=== PATIENT | female | born 1965 | race African-American/Black ===

== ENCOUNTER → 2016-11-18 | Outpatient (CLI) | payer OTHER ==
[2015-08-10 11:00] VITALS: BP 133/96
[~2016-11-18] MED LIST: AMLO5TAB2 PO; ASPI-482 PO; ERYT250C8 PO; Hydrocodone/Acetaminophen PO; LISI-334 PO; LISI1TAB7 PO; PRED2.5T PO; PRED20TA PO; RANI150C PO
--- NOTE | 2016-11-18 16:39 | RAD ---
DATE: 11/18/2016 EXAM: DIGITAL SCREEN BILAT W/CAD HISTORY: Routine screening COMPARISON: None available. This is dictated as a baseline exam This study was interpreted with the benefit of Computerized Aided Detection (CAD). FINDINGS: The breast parenchyma demonstrates predominantly fatty dense breast tissue, category A. There are no dominant suspicious masses, suspicious microcalcifications or evidence of architectural distortion. Benign-appearing calcified nodule identified in the right breast. Intramammary lymph nodes identified in the bilateral breasts IMPRESSION: Benign findings BI-RADS CATEGORY: 2 BENIGN FINDING RECOMMENDED FOLLOW-UP: 12M 12 MONTH FOLLOW-UP PQRS compliance statement: Patient information was entered into a reminder system with a target due date 11/18/2017 for the next mammogram. Mammography is a sensitive method for finding small breast cancers, but it does not detect them all and is not a substitute for careful clinical examination. A negative mammogram does not negate a clinically suspicious finding and should not result in delay in biopsying a clinically suspicious abnormality. "Our facility is accredited by the [employer] Mammography Program."
== END | disposition home or self-care (01) ==
LOC: MAMMO 14:21
PROVIDERS: ATTEND Family Medicine
DX: Z12.31 Encounter for screening mammogram for malignant neoplasm of breast (principal)
CPT/HCPCS: G0202; 77067

== ENCOUNTER → 2017-04-03 | Outpatient (CLI) | payer OTHER ==
[2015-08-10 11:00] VITALS: BP 133/96
[~2017-04-03] MED LIST changes: +IOHEXOL 300 MG/ML 75 ML VIAL IV ONE
--- NOTE | 2017-04-03 11:36 | RAD ---
EXAM: CT abdomen/pelvis with contrast. HISTORY: Crohn disease. TECHNIQUE: Computed tomography of the abdomen and pelvis was performed after the intravenous administration of 75 mL Omnipaque 300. COMPARISON: 08/07/2015. FINDINGS: Lung windows through the visualized portions of the bases reveal mild atelectasis. Bone windows reveal no suspicious lesions. There is moderate to severe diffuse hepatic steatosis. Cholecystectomy clips are noted. The kidneys, adrenal glands, pancreas and spleen are unremarkable. There are no pathologically enlarged lymph nodes. There is mild wall thickening throughout the colon with loss of haustration. There is no clear small bowel wall thickening. There is no drainable collection. There is no stricture or dilatation. The appendix is not inflamed. The uterus is surgically absent. IMPRESSION: 1. Loss of haustration and mild wall thickening of the colon. Correlate for chronic inflammation with mild superimposed colitis. 2. Moderate to severe diffuse hepatic steatosis. *One or more of the following individualized dose reduction techniques were utilized for this examination: 1. Automated exposure control. 2. Adjustment of the mA and/or kV according to patient size. 3. Use of iterative reconstruction technique.
== END | disposition home or self-care (01) ==
LOC: CT 08:55
PROVIDERS: ATTEND Physician Assistant
DX: K50.90 Crohn's disease, unspecified, without complications (principal); K76.0 Fatty (change of) liver, not elsewhere classified; I10 Essential (primary) hypertension
CPT/HCPCS: 74170; Q9967

== ENCOUNTER 2017-07-28 14:40 | Inpatient (IN) | payer OTHER ==
[2017-07-28 15:30] LABS: ADD MAN DIFF? NO
[2017-07-28 15:36] LABS: BASO % 1 % (0-3); EOS # 0.1 x10^3/uL (0.0-0.7); EOS % 1 % (0-3); HEMATOCRIT 45.3 % (36.0-47.0); HEMOGLOBIN 14.9 g/dL (12.0-15.5); LYMPH # 3.8 x10^3/uL (1.0-4.8); LYMPH % 43 % (24-48); MEAN CORPUSCULAR HEMOGLOBIN 30 pg (25-35); MEAN CORPUSCULAR HGB CONC 33 g/dL (31-37); MEAN CORPUSCULAR VOLUME 91 fL (79-100); MONO # 0.8 x10^3/uL (0.0-1.1); MONO % 9 % (0-9); NEUT # 4.1 x10^3uL (1.8-7.7); NEUT % 47 % (31-73); PLATELET COUNT 362 x10^3/uL (140-400); RED BLOOD COUNT 4.99 x10^6/uL (3.50-5.40); WHITE BLOOD COUNT 8.8 x10^3/uL (4.0-11.0)
[2017-07-28 15:43] LABS: PARTIAL THROMBOPLASTIN TIME 32 SEC (24-38); PROTHROMBIN TIME PATIENT 12.9 SEC (11.7-14.0)
[2017-07-28 15:51] LABS: D-DIMER < 0.27 ug/mlFEU (0.00-0.50)
[2017-07-28] MEDS: ASPIRIN ENTERIC COATED 325 MG TABLET.DR. PO (16:00)
[2017-07-28] MEDS: KETOROLAC 30 MG/ML INJ. IV (16:00)
[2017-07-28 16:43] LABS: ANION GAP 16 (6-14); BLOOD UREA NITROGEN 12 mg/dL (7-20); BUN/CREATININE RATIO 13 (6-20); CALCIUM 9.4 mg/dL (8.5-10.1); CARBON DIOXIDE 22 mmol/L (21-32); CHLORIDE 101 mmol/L (98-107); CREATININE 0.9 mg/dL (0.6-1.0); GFR 79.9; GLUCOSE 90 mg/dL (70-99); POTASSIUM 3.9 mmol/L (3.5-5.1); SODIUM 139 mmol/L (136-145)
[2017-07-28 16:49] LABS: ALBUMIN 4.1 g/dL (3.4-5.0); ALK PHOS 106 U/L (46-116); ALT (SGPT) 68 U/L (14-59); AST (SGOT) 89 U/L (15-37); CREATINE KINASE 328 U/L (26-192); LIPASE 98 U/L (73-393); MAGNESIUM 1.7 mg/dL (1.8-2.4); TOTAL BILIRUBIN 0.3 mg/dL (0.2-1.0); TOTAL PROTEIN 8.4 g/dL (6.4-8.2)
[2017-07-28 16:55] LABS: NT-PRO BNP 12 pg/mL (0-124)
[2017-07-28 16:57] LABS: TROPONINI < 0.017 ng/mL (0.000-0.055)
[2017-07-28 17:18] LABS: ETHANOL 105 mg/dL (0-10)
[2017-07-28 17:22] LABS: THYROID STIM HORMONE (TSH) 3.263 uIU/mL (0.358-3.74)
[2017-07-28] MEDS ORDERED: fentaNYL PF VIAL 100 MCG/2 ML VIAL IV (17:45)
[2017-07-28] MEDS ORDERED: ONDANSETRON PF 4 MG/2 ML VIAL. IV ×2 (17:45→19:30)
[2017-07-28] MEDS ORDERED: ALPRAZolam 0.25 MG TABLET PO (19:30)
[2017-07-28] MEDS ORDERED: chlordiazePOXIDE HCL 25 MG CAPSULE PO (19:30)
[2017-07-28] MEDS ORDERED: HYDROCODONE PO (19:30)
[2017-07-28] MEDS ORDERED: ACETAMINOPHEN PO (19:30)
[2017-07-28] MEDS ORDERED: IBUPROFEN 600 MG TABLET. PO (19:30)
[2017-07-28] MEDS: CYCLOBENZAPRINE 10 MG TABLET. PO ×2 (21:00→21:54)
[2017-07-28] MEDS: MULTIVIT INFUSN,ADULT 4,VIT K 10 ML, THIAMINE 100 MG, FOLIC ACID 1 MG in IV DEXTROSE 5 ... IV (21:54)
[2017-07-28] MEDS: IBUPROFEN 600 MG TABLET. PO (21:55)
[2017-07-28] MEDS: LORazepam 1 MG TABLET PO ×2 (21:56→23:45)
[2017-07-28] MEDS: FAMOTIDINE 20 MG TABLET. PO (21:56)
[2017-07-28 23:58] LABS: TROPONINI < 0.017 ng/mL (0.000-0.055)
[2017-07-29] MEDS: LORazepam 1 MG TABLET PO ×4 (05:45→23:23)
[2017-07-29 07:39] LABS: ANION GAP 11 (6-14); BLOOD UREA NITROGEN 14 mg/dL (7-20); CALCIUM 9.2 mg/dL (8.5-10.1); CARBON DIOXIDE 22 mmol/L (21-32); CHLORIDE 100 mmol/L (98-107); CREATININE 0.9 mg/dL (0.6-1.0); GFR 79.9; GLUCOSE 101 mg/dL (70-99); POTASSIUM 4.2 mmol/L (3.5-5.1); SODIUM 133 mmol/L (136-145)
[2017-07-29 07:48] LABS: TROPONINI < 0.017 ng/mL (0.000-0.055)
[2017-07-29] MEDS: MULTIVIT INFUSN,ADULT 4,VIT K 10 ML, THIAMINE 100 MG, FOLIC ACID 1 MG in IV DEXTROSE 5 ... IV (09:00)
[2017-07-29] MEDS: predniSONE 20 MG TABLET PO ×3 (09:00→09:29)
[2017-07-29] MEDS: ACETAMINOPHEN 500 MG TABLET PO (09:26)
[2017-07-29] MEDS: LISINOPRIL 20 MG TABLET PO (09:27)
[2017-07-29] MEDS: amLODIPine BESYLATE 5 MG TABLET PO (09:28)
[2017-07-29] MEDS: FAMOTIDINE 20 MG TABLET. PO ×2 (09:28→23:22)
[2017-07-29 10:15] LABS: ADD MAN DIFF? NO
[2017-07-29 10:45] LABS: BASO % 0 % (0-3); EOS # 0.1 x10^3/uL (0.0-0.7); EOS % 1 % (0-3); HEMOGLOBIN 13.9 g/dL (12.0-15.5); LYMPH # 2.1 x10^3/uL (1.0-4.8); LYMPH % 43 % (24-48); MEAN CORPUSCULAR HEMOGLOBIN 30 pg (25-35); MEAN CORPUSCULAR HGB CONC 32 g/dL (31-37); MEAN CORPUSCULAR VOLUME 91 fL (79-100); MONO # 0.5 x10^3/uL (0.0-1.1); MONO % 11 % (0-9); NEUT # 2.2 x10^3uL (1.8-7.7); NEUT % 45 % (31-73); PLATELET COUNT 301 x10^3/uL (140-400); RED BLOOD COUNT 4.71 x10^6/uL (3.50-5.40); RED CELL DISTRIBUTION WIDTH 13.8 % (11.5-14.5)
[2017-07-29 11:27] LABS: CREATINE KINASE 247 U/L (26-192)
[2017-07-29 11:27] LABS: CHOLESTEROL 217 mg/dL (0-200); HDLC 105 mg/dL (40-60); LDLC 99 mg/dL (0-100); MAGNESIUM 1.7 mg/dL (1.8-2.4); NON-HDL CHOLESTEROL 112 mg/dL (0-129); TRIGLYCERIDES 65 mg/dL (0-150); VLDLC 13 mg/dL (0-40)
[2017-07-29 11:38] LABS: CHOLESTEROL/HDL RATIO 2.1
[2017-07-29] MEDS: PANTOPRAZOLE 40 MG TABLET.DR. PO (11:51)
[2017-07-29] MEDS: CYCLOBENZAPRINE 10 MG TABLET. PO ×3 (11:52→23:24)
[2017-07-29] MEDS: MAGNESIUM SULFATE 2GM 50 ML IV (14:59)
[2017-07-29] MEDS: HYDROcodone/APAP 5/325MG 1 TAB TABLET PO (23:22)
[2017-07-30] MEDS: CYCLOBENZAPRINE 10 MG TABLET. PO ×2 (06:51→14:29)
[2017-07-30] MEDS: HYDROcodone/APAP 5/325MG 1 TAB TABLET PO (06:52)
[2017-07-30] MEDS: MAGNESIUM SULFATE 2GM 50 ML IV (08:13)
[2017-07-30] MEDS: predniSONE 20 MG TABLET PO ×2 (08:13→08:15)
[2017-07-30] MEDS: amLODIPine BESYLATE 5 MG TABLET PO (08:14)
[2017-07-30] MEDS: PANTOPRAZOLE 40 MG TABLET.DR. PO (08:14)
[2017-07-30] MEDS: FAMOTIDINE 20 MG TABLET. PO (08:14)
[2017-07-30] MEDS: LISINOPRIL 20 MG TABLET PO (08:14)
[2017-07-30] MEDS: MULTIVIT INFUSN,ADULT 4,VIT K 10 ML, THIAMINE 100 MG, FOLIC ACID 1 MG in IV DEXTROSE 5 ... IV (10:36)
== END 2017-07-30 15:59 | disposition home or self-care (01) | DRG 552 ==
LOC: ER 14:40 → 6 SOUTH 17:30
DX: S13.4XXA Sprain of ligaments of cervical spine, initial encounter (principal); E87.2 Acidosis; M62.82 Rhabdomyolysis; K50.90 Crohn's disease, unspecified, without complications; K31.84 Gastroparesis; E83.42 Hypomagnesemia; F10.239 Alcohol dependence with withdrawal, unspecified; I11.9 Hypertensive heart disease without heart failure; I20.9 Angina pectoris, unspecified; G58.9 Mononeuropathy, unspecified; R00.0 Tachycardia, unspecified; K21.9 Gastro-esophageal reflux disease without esophagitis; M19.90 Unspecified osteoarthritis, unspecified site; R74.0 Nonspecific elevation of levels of transaminase and lactic acid dehydrogenase [LDH]; M43.6 Torticollis; E66.9 Obesity, unspecified; Y90.5 Blood alcohol level of 100-119 mg/100 ml; Z90.710 Acquired absence of both cervix and uterus; Z90.49 Acquired absence of other specified parts of digestive tract; Z88.6 Allergy status to analgesic agent; Z68.32 Body mass index [BMI] 32.0-32.9, adult; Z86.73 Personal history of transient ischemic attack (TIA), and cerebral infarction without residual deficits; Z82.49 Family history of ischemic heart disease and other diseases of the circulatory system; Z87.440 Personal history of urinary (tract) infections
CPT/HCPCS: 36415; 71045; 72141; 80048; 80053; 80061; 82550; 83690; 83735; 83880; 84443; 84484; 85025; 85379; 85610; 85730; 93005; 93306; 96374; 96375; 99285; 99285-25; G0480; J1885; J2060; J7060; J7512

== ENCOUNTER → 2017-12-05 | Outpatient (CLI) | payer OTHER | END | disposition home or self-care (01) | LOC: MAMMO 07:58 | DX: Z12.31 Encounter for screening mammogram for malignant neoplasm of breast (principal) | CPT/HCPCS: 77067 ==

== ENCOUNTER 2018-01-12 20:55 | Emergency (ER) | payer OTHER ==
[2018-01-12 22:03] LABS: BILIRUBIN,URINE NEGATIVE (NEG); CLARITY,URINE CLEAR; COLOR,URINE YELLOW; GLUCOSE,URINE NEGATIVE (NEG); NITRITE,URINE NEGATIVE (NEG); PH,URINE 6.5; PROTEIN,URINE NEGATIVE (NEG-TRACE); UROBILINOGEN,URINE 0.2 mg/dL (0.2 mg/dL)
[2018-01-12 22:10] LABS: AMPHETAMINE/METHAMPHETAMINE NEG (NEG); BACTERIA,URINE 0 /HPF (0-FEW); BARBITURATES NEG (NEG); BENZODIAZEPINES NEG (NEG); CANNABINOIDS NEG (NEG); COCAINE NEG (NEG); ETHANOL, URINE POS (NEG); METHADONE NEG (NEG); OPIATES NEG (NEG); PHENCYCLIDINE NEG (NEG); RBC,URINE 0 /HPF (0-2); SQUAMOUS EPITHELIAL CELL,UR FEW /LPF; WBC,URINE OCC /HPF (0-4); YEAST,URINE PRESENT /HPF
[2018-01-12] MEDS: IV NORMAL SALINE 1000ML BAG 1,000 ML IV (22:25)
[2018-01-12 22:34] LABS: ADD MAN DIFF? NO
[2018-01-12 22:35] LABS: BASO # 0.1 x10^3/uL (0.0-0.2); BASO % 1 % (0-3); EOS # 0.1 x10^3/uL (0.0-0.7); EOS % 2 % (0-3); HEMATOCRIT 42.2 % (36.0-47.0); HEMOGLOBIN 14.2 g/dL (12.0-15.5); LYMPH # 2.4 x10^3/uL (1.0-4.8); LYMPH % 38 % (24-48); MEAN CORPUSCULAR HEMOGLOBIN 31 pg (25-35); MEAN CORPUSCULAR HGB CONC 34 g/dL (31-37); MEAN CORPUSCULAR VOLUME 91 fL (79-100); MONO # 0.6 x10^3/uL (0.0-1.1); MONO % 9 % (0-9); NEUT # 3.3 x10^3uL (1.8-7.7); NEUT % 50 % (31-73); PLATELET COUNT 371 x10^3/uL (140-400); RED BLOOD COUNT 4.65 x10^6/uL (3.50-5.40); RED CELL DISTRIBUTION WIDTH 14.5 % (11.5-14.5); WHITE BLOOD COUNT 6.5 x10^3/uL (4.0-11.0)
[2018-01-12] MEDS: DEXAMETHASONE SOD PHOS 20 MG/5 ML VIAL. IV (23:23)
[2018-01-12] MEDS: KETOROLAC 30 MG/ML INJ. IV (23:23)
[2018-01-12] MEDS ORDERED: diphenhydrAMINE 50 MG/ML VIAL (23:28)
[2018-01-12] MEDS: diphenhydrAMINE 50 MG/ML VIAL IVP (23:33)
[2018-01-12 23:40] LABS: ANION GAP 12 (6-14); BLOOD UREA NITROGEN 10 mg/dL (7-20); CALCIUM 9.4 mg/dL (8.5-10.1); CARBON DIOXIDE 25 mmol/L (21-32); CHLORIDE 102 mmol/L (98-107); GFR 70.7; GLUCOSE 100 mg/dL (70-99); POTASSIUM 3.3 mmol/L (3.5-5.1); SODIUM 139 mmol/L (136-145)
[2018-01-12 23:41] LABS: LIPASE 141 U/L (73-393); MAGNESIUM 1.7 mg/dL (1.8-2.4)
[2018-01-12 23:48] LABS: TROPONINI < 0.017 ng/mL (0.000-0.055)
[2018-01-12 23:53] LABS: THYROID STIM HORMONE (TSH) 4.091 uIU/mL (0.358-3.74)
[2018-01-12 23:55] LABS: NT-PRO BNP 46 pg/mL (0-124)
[2018-01-12 23:55] LABS: CKMB INDEX 0.3 % (0-4); CKMB MASS 0.9 ng/mL (0.0-3.6); CREATINE KINASE 320 U/L (26-192)
== END 2018-01-13 00:17 | disposition home or self-care (01) ==
LOC: ER 01-13 00:17
DX: R51 Headache (principal); I10 Essential (primary) hypertension; R20.2 Paresthesia of skin; K50.90 Crohn's disease, unspecified, without complications; Z86.73 Personal history of transient ischemic attack (TIA), and cerebral infarction without residual deficits; Z88.5 Allergy status to narcotic agent; Z88.8 Allergy status to other drugs, medicaments and biological substances
CPT/HCPCS: 36415; 70450; 71045; 80048; 80307; 81001; 82553; 83690; 83735; 83880; 84443; 84484; 85025; 93005; 96361; 96374; 96375; 99285-25; J1100; J1200; J1885; J7030

== ENCOUNTER → 2018-05-22 | Outpatient (CLI) | payer OTHER ==
[2018-01-12 23:52] VITALS: BP 128/84
[~2018-05-22] MED LIST changes: -AMLO5TAB2 PO; +AMLO5TAB7 PO; -IOHEXOL 300 MG/ML 75 ML VIAL IV ONE
--- NOTE | 2018-05-22 15:47 | RAD ---
DATE: 05/22/2018 12:45 PM EXAM: DIGITAL DIAGNOSTIC LT HISTORY: short-term imaging followup of a probably benign finding in the left breast. COMPARISON: 12/05/2017, 11/18/2016 Left breast full field craniocaudal and mediolateral oblique images were obtained using digital technique. In addition to the spot magnification views of the left breast were obtained in the CC and MLO projection. This study was interpreted with the benefit of Computerized Aided Detection (CAD ). Breast Density: The breast parenchyma is primarily fatty replaced. Breast parenchyma level density A. FINDINGS: The previously seen breast calcifications in the left breast are essentially stable on today's examination. Otherwise no left breast mass, asymmetry or architectural distortion. The visualized left axilla is unremarkable. IMPRESSION: Left breast indeterminate microcalcifications, findings for which short-term follow-up imaging is advised. BI-RADS CATEGORY: 3 PROBABLY BENIGN FINDING(S)-SHORT INTERVAL FOLLOW-UP SUGGESTED RECOMMENDED FOLLOW-UP: 6M 6 MONTH FOLLOW-UP. Follow-up diagnostic imaging to include spot magnification views are recommended in 6 months. At that time the patient will be due for a contralateral screening mammogram. PQRS compliance statement: Patient information was entered into a reminder system with a target due date for the next mammogram. Mammography is a sensitive method for finding small breast cancers, but it does not detect them all and is not a substitute for careful clinical examination. A negative mammogram does not negate a clinically suspicious finding and should not result in delay in biopsying a clinically suspicious abnormality. "Our facility is accredited by the [employer] Mammography Program." AUGUSTINED
== END | disposition home or self-care (01) ==
LOC: MAMMO 10:16
PROVIDERS: ATTEND Family Medicine
DX: R92.8 Other abnormal and inconclusive findings on diagnostic imaging of breast (principal)
CPT/HCPCS: 77065

== ENCOUNTER 2018-07-30 06:46 | Emergency (ER) | payer OTHER ==
[~2018-07-30] VITALS: Ht 167.6 cm; Wt 100.4 kg
[2018-07-30 07:12] LABS: BILIRUBIN,URINE NEGATIVE (NEG); CLARITY,URINE CLEAR; COLOR,URINE YELLOW; NITRITE,URINE NEGATIVE (NEG); PROTEIN,URINE NEGATIVE (NEG-TRACE); UROBILINOGEN,URINE 0.2 mg/dL (0.2 mg/dL)
[2018-07-30] MEDS ORDERED: IOHEXOL 300 MG/ML 100ML VIAL. IV ONE (07:30)
[2018-07-30] MEDS ORDERED: ONDANSETRON PF 4 MG/2 ML VIAL. IV ONE ×2 (07:30→08:15)
[2018-07-30] MEDS ORDERED: CONTRAST GIVEN. MC PRN (07:30)
[2018-07-30 07:35] LABS: BACTERIA,URINE FEW /HPF (0-FEW); RBC,URINE 0 /HPF (0-2); SQUAMOUS EPITHELIAL CELL,UR MANY /LPF; WBC,URINE 0 /HPF (0-4)
--- NOTE | 2018-07-30 07:47 | EKG ---
[facility] [address] [place] [address] Test Date: 2018-07-30 Test Time: 07:08:29 Pat Name: JANETTE BASILIO Department: Room: Gender: F [employer]: : 1965 Requested By: TA MASON Order Number: [id number] Reading MD: Measurements Intervals [place] Rate: 119 P: 9 [place]: 108 QRS: 15 QRSD: 82 T: 19 QT: 358 QTc: 504 Interpretive Statements SINUS TACHYCARDIA LEFT ATRIAL ABNORMALITY ABNORMAL ECG RI6.01 No previous ECG available for comparison
[2018-07-30 08:00] LABS: BASO % 1 % (0-3); EOS # 0.1 x10^3/uL (0.0-0.7); EOS % 1 % (0-3); HEMOGLOBIN 14.8 g/dL (12.0-15.5); LYMPH # 2.4 x10^3/uL (1.0-4.8); LYMPH % 47 % (24-48); MEAN CORPUSCULAR HEMOGLOBIN 30 pg (25-35); MEAN CORPUSCULAR HGB CONC 34 g/dL (31-37); MEAN CORPUSCULAR VOLUME 89 fL (79-100); MONO # 0.4 x10^3/uL (0.0-1.1); MONO % 8 % (0-9); NEUT # 2.3 x10^3uL (1.8-7.7); NEUT % 43 % (31-73); PLATELET COUNT 353 x10^3/uL (140-400); RED BLOOD COUNT 4.96 x10^6/uL (3.50-5.40); RED CELL DISTRIBUTION WIDTH 14.8 % (11.5-14.5); WHITE BLOOD COUNT 5.3 x10^3/uL (4.0-11.0)
[2018-07-30 08:07] LABS: CALCIUM 9.4 mg/dL (8.5-10.1); CREATININE 0.8 mg/dL (0.6-1.0); GFR 91.1; POTASSIUM 3.2 mmol/L (3.5-5.1)
[2018-07-30 08:14] LABS: ALBUMIN 3.8 g/dL (3.4-5.0); ALBUMIN/GLOBULIN RATIO 0.8 (1.0-1.7); TOTAL BILIRUBIN 0.4 mg/dL (0.2-1.0); TOTAL PROTEIN 8.3 g/dL (6.4-8.2)
[2018-07-30] MEDS ORDERED: fentaNYL PF VIAL 100 MCG/2 ML VIAL IM ONE (08:15)
[2018-07-30] MEDS ORDERED: FAMOTIDINE 20 MG/2 ML VIAL IVP ONE (08:15)
--- NOTE | 2018-07-30 08:52 | RAD ---
PQRS Compliance Statement: One or more of the following individualized dose reduction techniques were utilized for this examination: 1. Automated exposure control 2. Adjustment of the mA and/or kV according to patient size 3. Use of iterative reconstruction technique CT ABD PELV W/ IV CONTRST ONLY Clinical Indication: h/o crohn's rlq pain Comparison: CT abdomen and pelvis with and without contrast, CT enterography, April 03, 2017. Technique: Helical CT imaging of the abdomen and pelvis is performed after 75 cc of Omnipaque 300 IV contrast. Oral contrast not given. Findings: Mild atelectasis in the posterior bilateral lower lobes. Cardiac size is normal. There is moderate fatty infiltration of the liver. Cholecystectomy. The spleen, pancreas, adrenal glands, abdominal aorta, and kidneys are normal. Stomach unremarkable. The appendix is normal. There is no dilated small bowel. There is no wall thickening of the terminal ileum. There is no colon wall thickening. No abdominal adenopathy or free fluid. There is a small metallic density in the anterior omentum near the umbilicus, present on prior study but in different position. Urinary bladder is not well distended, otherwise normal. Hysterectomy. Ovaries are symmetric. No pelvic free fluid. The femoral head appearance suggests old osteonecrosis. No deformity of the femoral heads. The sacral iliac joints are symmetric. IMPRESSION: 1. No acute abdominal or pelvic abnormality. The appendix is normal. There is no transmural thickening of the terminal ileum. 2. Moderate fatty infiltration of the liver. Electronically signed by: Eduardo Hardy MD (07/30/2018 8:47 AM) [id number]
[2018-07-30 09:13] VITALS: BP 142/83
--- NOTE | 2018-07-30 09:16 | PHYS DOC ---
Past Medical History Past Medical History: Hypertension, TIA, Other Additional Past Medical Histor: crohn's, GASTROPERESIS Past Surgical History: Cholecystectomy, Hysterectomy Additional Past Surgical Histo: partial hyster-04 Alcohol Use: Occasionally Drug Use: None Adult General Chief Complaint Chief Complaint: ABDOMINAL PAIN HPI HPI Patient is a 53 year old F who presents with Abd pain. She has a history of crohns. Review of Systems Review of Systems Constitutional: Denies fever or chills [] Eyes: Denies change in visual acuity, redness, or eye pain [] HENT: Denies nasal congestion or sore throat [] Respiratory: Denies cough or shortness of breath [] Cardiovascular: No additional information not addressed in HPI [] GI: Denies abdominal pain, nausea, vomiting, bloody stools or diarrhea [] : Denies dysuria or hematuria [] Musculoskeletal: Denies back pain or joint pain [] Integument: Denies rash or skin lesions [] Neurologic: Denies headache, focal weakness or sensory changes [] Endocrine: Denies polyuria or polydipsia [] All other systems were reviewed and found to be within normal limits, except as documented in this note. Current Medications Current Medications Current Medications Medications (Trade) Dose Ordered Sig/Rhonda Start Time Stop Time Status Last Admin Dose Admin Famotidine (Pepcid Vial) 20 mg 1X ONCE 07/30/18 08:15 07/30/18 08:17 DC 07/30/18 08:10 20 MG Fentanyl Citrate (Fentanyl 2ml Vial) 50 mcg 1X ONCE 07/30/18 08:15 07/30/18 08:17 DC 07/30/18 08:18 50 MCG Info (CONTRAST GIVEN -- Rx MONITORING) 1 each PRN DAILY PRN 07/30/18 07:30 08/01/18 07:29 Iohexol (Omnipaque 300 Mg/ml) 75 ml 1X ONCE 07/30/18 07:30 07/30/18 07:31 DC 07/30/18 08:20 75 ML Ondansetron HCl (Zofran) 4 mg 1X ONCE 07/30/18 08:15 07/30/18 08:17 DC 07/30/18 08:14 4 MG Allergies Allergies Allergies Coded Allergies Type Severity Reaction Last Updated Verified dexamethasone Allergy Intermediate 01/12/18 Yes morphine Allergy Intermediate rash/hives 08/07/15 Yes Physical Exam Physical Exam Constitutional: Well developed, well nourished, no acute distress, non-toxic appearance. [] HENT: Normocephalic, atraumatic, bilateral external ears normal, oropharynx moist, no oral exudates, nose normal. [] Eyes: PERRLA, EOMI, conjunctiva normal, no discharge. [] Neck: Normal range of motion, no tenderness, supple, no stridor. [] Cardiovascular:Heart rate regular rhythm, no murmur [] Lungs & Thorax: Bilateral breath sounds clear to auscultation [] Abdomen: Bowel sounds normal, soft, no tenderness, no masses, no pulsatile masses. [] Skin: Warm, dry, no erythema, no rash. [] Back: No tenderness, no CVA tenderness. [] Extremities: No tenderness, no cyanosis, no clubbing, ROM intact, no edema. [] Neurologic: Alert and oriented X 3, normal motor function, normal sensory function, no focal deficits noted. [] Psychologic: Affect normal, judgement normal, mood normal. [] Current Patient Data Vital Signs Vital Signs Date Time Temp Pulse Resp B/P (MAP) Pulse Ox O2 Delivery O2 Flow Rate FiO2 07/30/18 08:18 18 Room Air 07/30/18 07:01 98.6 136 161/95 (117) 97 98.6 Lab Values Laboratory Tests Test 07/30/18 07:00 07/30/18 07:50 Urine Collection Type Unknown Urine Color Yellow Urine Clarity Clear Urine pH 6.0 Urine Specific [place] 1.020 Urine Protein Negative mg/dL (NEG-TRACE) Urine Glucose (UA) Negative mg/dL (NEG) Urine Ketones (Stick) Negative mg/dL (NEG) Urine Blood Negative (NEG) Urine Nitrite Negative (NEG) Urine Bilirubin Negative (NEG) Urine Urobilinogen Dipstick 0.2 mg/dL (0.2 mg/dL) Urine Leukocyte Esterase Negative (NEG) Urine RBC 0 /HPF (0-2) Urine WBC 0 /HPF (0-4) Urine Squamous Epithelial Cells Many /LPF Urine Bacteria Few /HPF (0-FEW) Urine Mucus Mod /LPF White Blood Count 5.3 x10^3/uL (4.0-11.0) Red Blood Count 4.96 x10^6/uL (3.50-5.40) Hemoglobin 14.8 g/dL (12.0-15.5) Hematocrit 44.0 % (36.0-47.0) Mean Corpuscular Volume 89 fL (79-100) Mean Corpuscular Hemoglobin 30 pg (25-35) Mean Corpuscular Hemoglobin Concent 34 g/dL (31-37) Red Cell Distribution Width 14.8 % (11.5-14.5) H Platelet Count 353 x10^3/uL (140-400) Neutrophils (%) (Auto) 43 % (31-73) Lymphocytes (%) (Auto) 47 % (24-48) Monocytes (%) (Auto) 8 % (0-9) Eosinophils (%) (Auto) 1 % (0-3) Basophils (%) (Auto) 1 % (0-3) Neutrophils # (Auto) 2.3 x10^3uL (1.8-7.7) Lymphocytes # (Auto) 2.4 x10^3/uL (1.0-4.8) Monocytes # (Auto) 0.4 x10^3/uL (0.0-1.1) Eosinophils # (Auto) 0.1 x10^3/uL (0.0-0.7) Basophils # (Auto) 0.0 x10^3/uL (0.0-0.2) Sodium Level 141 mmol/L (136-145) Potassium Level 3.2 mmol/L (3.5-5.1) L Chloride Level 102 mmol/L (98-107) Carbon Dioxide Level 22 mmol/L (21-32) Anion Gap 17 (6-14) H Blood Urea Nitrogen 7 mg/dL (7-20) Creatinine 0.8 mg/dL (0.6-1.0) Estimated GFR (Cockcroft-Gault) 91.1 BUN/Creatinine Ratio 9 (6-20) Glucose Level 91 mg/dL (70-99) Calcium Level 9.4 mg/dL (8.5-10.1) Total Bilirubin 0.4 mg/dL (0.2-1.0) Aspartate Amino Transferase (AST) 147 U/L (15-37) H Alanine Aminotransferase (ALT) 84 U/L (14-59) H Alkaline Phosphatase 102 U/L (46-116) Total Protein 8.3 g/dL (6.4-8.2) H Albumin 3.8 g/dL (3.4-5.0) Albumin/Globulin Ratio 0.8 (1.0-1.7) L Lipase 102 U/L (73-393) Laboratory Tests 07/30/18 07:50 Laboratory Tests 07/30/18 07:50 EKG EKG [] Radiology/Procedures Radiology/Procedures [] Course & Med Decision Making Course & Med Decision Making Pertinent Labs and Imaging studies reviewed. (See chart for details) [] Dragon Disclaimer Dragon Disclaimer This electronic medical record was generated, in whole or in part, using a voice recognition dictation system. Departure Departure Impression: Primary Impression: Abdominal pain Disposition: 01 HOME, SELF-CARE Condition: IMPROVED Referrals: EULOGIO COLEMAN (PCP) Problem Qualifiers Primary Impression: Abdominal pain Abdominal location: epigastric Qualified Codes: R10.13 - Epigastric pain TA MASON MD Jul 30, 2018 09:15
[2018-07-30] MEDS ORDERED: RANI150T21 PO (09:20)
[2018-07-30] MEDS ORDERED: DICY10CA3 PO (09:20)
[2018-07-30] MEDS ORDERED: LIDO:MAALOX 1:1 20 ML SINGLE DOSE. SWSW ONE (09:30)
[2018-07-30] MEDS ORDERED: LIDO:MAALOX 1:1 20 ML SINGLE DOSE. ONE (09:34)
[2018-07-30] MEDS ORDERED: LABETALOL 20 MG/4 ML DISP.SYRIN. IVP ONE (09:45)
== END 2018-07-30 09:43 | disposition home or self-care (01) ==
LOC: ER 06:46
DX: R10.13 Epigastric pain (principal); I10 Essential (primary) hypertension; Z86.73 Personal history of transient ischemic attack (TIA), and cerebral infarction without residual deficits; Z90.49 Acquired absence of other specified parts of digestive tract; Z90.710 Acquired absence of both cervix and uterus; Z88.5 Allergy status to narcotic agent; Z88.8 Allergy status to other drugs, medicaments and biological substances
CPT/HCPCS: 36415; 74177; 80053; 81001; 83690; 85025; 93005; 96372; 96374; 96375; 96376; 99284; J2405; J3010; J3490; Q9967

== ENCOUNTER → 2019-01-06 | Outpatient (CLI) | payer OTHER ==
[~2019-01-06] MED LIST changes: +AMLO5TAB10 PO; -AMLO5TAB7 PO; +DICY10CA3 PO; +RANI-376 PO
--- NOTE | 2019-01-11 09:58 | RAD ---
DATE: 01/06/2019 EXAM: DIGITAL DIAGNOSTIC BILATERAL HISTORY: Abnormal mammogram COMPARISON: 12/08/2018 mammographic exam performed at [facility], 05/22/2018 left unilateral mammographic exam, 12/05/2017 screening mammographic exam, 11/18/2016 screening mammographic exam This study was interpreted with the benefit of Computerized Aided Detection (CAD). Breast Density: SCATTERED The breast parenchyma shows scattered fibroglandular densities. Breast parenchyma level B. FINDINGS: Benign-appearing left breast calcifications are present on spot magnification imaging without significant change compared 12/05/2017. Multiple small masses are identified involving the right breast and some are more evident as compared to 12/05/2017. There is smoothly marginated. Multiple very small masses involving left breast are similar to the prior exam. IMPRESSION: Small masses involving the right breast are present and somewhat more evident than on the prior exam. Six-month follow-up mammographic exam of the right breast is recommended to assess stability. Ultrasound may be needed. Benign-appearing left breast calcifications. BI-RADS CATEGORY: 3 PROBABLY BENIGN FINDING(S)-SHORT INTERVAL FOLLOW-UP SUGGESTED RECOMMENDED FOLLOW-UP: 6M 6 MONTH FOLLOW-UP PQRS compliance statement: Patient information was entered into a reminder system with a target due date for the next mammogram. Mammography is a sensitive method for finding small breast cancers, but it does not detect them all and is not a substitute for careful clinical examination. A negative mammogram does not negate a clinically suspicious finding and should not result in delay in biopsying a clinically suspicious abnormality. "Our facility is accredited by the [employer] Mammography Program."
== END | disposition home or self-care (01) ==
LOC: MAMMO 15:32
PROVIDERS: ATTEND Family Medicine
DX: N63.10 Unspecified lump in the right breast, unspecified quadrant (principal); R92.1 Mammographic calcification found on diagnostic imaging of breast
CPT/HCPCS: 77066

== ENCOUNTER 2019-07-12 06:59 | Emergency (ER) | payer SELFPAY ==
[~2019-07-12] VITALS: Ht 167.6 cm; Wt 90.7 kg
[~2019-07-12 06:59] MED LIST changes: +LISI1TAB20 PO; -LISI1TAB7 PO
[2019-07-12] MEDS ORDERED: fentaNYL PF VIAL 100 MCG/2 ML VIAL IVP ONE (07:30)
[2019-07-12] MEDS ORDERED: ONDANSETRON PF 4 MG/2 ML VIAL. IV ONE (07:30)
--- NOTE | 2019-07-12 07:31 | EKG ---
[facility] [address] [place] [address] Test Date: 2019-07-12 Test Time: 07:28:38 Pat Name: JANETTE BASILIO Department: Room: Gender: F Social [employer]er School: : 1965 Requested By: MOUNA MELISSA Order Number: [id number] Reading MD: Measurements Intervals [place] Rate: 109 P: -54 MT: 106 QRS: -7 QRSD: 86 T: -3 QT: 378 QTc: 510 Interpretive Statements SUPRAVENTRICULAR RHYTHM LEFT ATRIAL ABNORMALITY LEFTWARD AXIS NON SPECIFIC T ABNORMALITY ABNORMAL ECG No previous ECG available for comparison
--- NOTE | 2019-07-12 07:35 | PHYS DOC ---
Past Medical History Past Medical History: Hypertension, TIA, Other Additional Past Medical Histor: crohn's, GASTROPERESIS Past Surgical History: Cholecystectomy, Hysterectomy Additional Past Surgical Histo: partial hyster-04 Alcohol Use: Occasionally Drug Use: None Adult General Chief Complaint Chief Complaint: HEADACHE HPI HPI Patient is a 54 year old female patient with history of hypertension, Crohn's disease, gastroparesis, TIA who presents with complaint of headache. Patient complaining of frontal and right parietal headache since yesterday as a constant sharp pain and rated her pain 10 over 10. Patient complaining of nausea, dizziness, lightheadedness associated with her headache and denies history of head injury or the same headache previously. Patient complaining of discomfort feeling in right arm like burning sensation without focal neuro deficit, fever and chills, neck pain, chest pain, shortness of breath, URI symptoms, sinus pressure. Patient states she took and the since yesterday without improvement of her pain. Review of Systems Review of Systems Constitutional: Denies fever or chills [] Eyes: Denies change in visual acuity, redness, or eye pain [] HENT: Denies nasal congestion or sore throat [] Respiratory: Denies cough or shortness of breath [] Cardiovascular: No additional information not addressed in HPI [] GI: Denies abdominal pain, vomiting, bloody stools or diarrhea , reports nausea[] : Denies dysuria or hematuria [] Musculoskeletal: Denies back pain, reports joint pain [] Integument: Denies rash or skin lesions [] Neurologic: Denies focal weakness or sensory changes, reports headache [] Endocrine: Denies polyuria or polydipsia [] All other systems were reviewed and found to be within normal limits, except as documented in this note. Current Medications Current Medications Current Medications Medications (Trade) Dose Ordered Sig/Rhonda Start Time Stop Time Status Last Admin Dose Admin Fentanyl Citrate (Fentanyl 2ml Vial) 50 mcg 1X ONCE 07/12/19 07:30 07/12/19 07:31 DC 07/12/19 08:13 50 MCG Ketorolac Tromethamine (Toradol 30mg Vial) 30 mg 1X ONCE 07/12/19 08:30 07/12/19 08:34 DC 07/12/19 08:45 30 MG Magnesium Sulfate 50 ml @ 25 mls/hr 1X ONCE 07/12/19 09:00 07/12/19 10:59 07/12/19 09:25 25 MLS/HR Metoclopramide HCl (Reglan Vial) 10 mg 1X ONCE 07/12/19 09:30 07/12/19 09:31 DC 07/12/19 09:21 10 MG Ondansetron HCl (Zofran) 4 mg 1X ONCE 07/12/19 07:30 07/12/19 07:31 DC 07/12/19 08:13 4 MG Potassium Chloride (Klor-Con) 40 meq 1X ONCE 07/12/19 09:00 07/12/19 09:01 DC 07/12/19 09:23 40 MEQ Sodium Chloride 1,000 ml @ 1,000 mls/hr 1X ONCE 07/12/19 09:30 07/12/19 10:29 DC 07/12/19 09:22 1,000 MLS/HR Allergies Allergies Allergies Coded Allergies Type Severity Reaction Last Updated Verified dexamethasone Allergy Intermediate 01/12/18 Yes morphine Allergy Intermediate rash/hives 08/07/15 Yes Physical Exam Physical Exam Constitutional: Well developed, well nourished, mild distress, non-toxic appearance, blood pressure of 182/117. [] HENT: Normocephalic, atraumatic, bilateral external ears normal, oropharynx moist, no oral exudates, nose normal. [] Eyes: PERRLA, EOMI, conjunctiva normal, no discharge. [] Neck: Normal range of motion, no tenderness, supple, no stridor, no meningeal sign. [] Cardiovascular: Tachycardia, no murmur [] Lungs & Thorax: Bilateral breath sounds clear to auscultation [] Abdomen: Bowel sounds normal, soft, no tenderness, no masses, no pulsatile masses. [] Skin: Warm, dry, no erythema, no rash. [] Back: No tenderness, no CVA tenderness. [] Extremities: No tenderness, no cyanosis, no clubbing, ROM intact, no edema. [] Neurologic: Alert and oriented X 3, normal motor function, normal sensory function, no focal deficits noted. [] Psychologic: Affect normal, judgement normal, mood normal. [] Current Patient Data Vital Signs Vital Signs Date Time Temp Pulse Resp B/P (MAP) Pulse Ox O2 Delivery O2 Flow Rate FiO2 07/12/19 08:43 18 94 Room Air 07/12/19 07:05 98.1 133 182/117 (138) 98.1 Lab Values Laboratory Tests Test 07/12/19 08:09 07/12/19 10:00 White Blood Count 4.9 x10^3/uL (4.0-11.0) Red Blood Count 5.49 x10^6/uL (3.50-5.40) H Hemoglobin 16.8 g/dL (12.0-15.5) H Hematocrit 49.2 % (36.0-47.0) H Mean Corpuscular Volume 90 fL (79-100) Mean Corpuscular Hemoglobin 31 pg (25-35) Mean Corpuscular Hemoglobin Concent 34 g/dL (31-37) Red Cell Distribution Width 15.3 % (11.5-14.5) H Platelet Count 331 x10^3/uL (140-400) Neutrophils (%) (Auto) 46 % (31-73) Lymphocytes (%) (Auto) 43 % (24-48) Monocytes (%) (Auto) 9 % (0-9) Eosinophils (%) (Auto) 1 % (0-3) Basophils (%) (Auto) 1 % (0-3) Neutrophils # (Auto) 2.2 x10^3/uL (1.8-7.7) Lymphocytes # (Auto) 2.1 x10^3/uL (1.0-4.8) Monocytes # (Auto) 0.4 x10^3/uL (0.0-1.1) Eosinophils # (Auto) 0.0 x10^3/uL (0.0-0.7) Basophils # (Auto) 0.0 x10^3/uL (0.0-0.2) Prothrombin Time 11.3 SEC (11.7-14.0) L Prothrombin Time INR 0.9 (0.8-1.1) Sodium Level 137 mmol/L (136-145) Potassium Level 3.1 mmol/L (3.5-5.1) L Chloride Level 99 mmol/L (98-107) Carbon Dioxide Level 27 mmol/L (21-32) Anion Gap 11 (6-14) Blood Urea Nitrogen 6 mg/dL (7-20) L Creatinine 0.9 mg/dL (0.6-1.0) Estimated GFR (Cockcroft-Gault) 79.3 BUN/Creatinine Ratio 7 (6-20) Glucose Level 107 mg/dL (70-99) H Calcium Level 9.7 mg/dL (8.5-10.1) Magnesium Level 1.4 mg/dL (1.8-2.4) L Total Bilirubin 0.4 mg/dL (0.2-1.0) Aspartate Amino Transferase (AST) 122 U/L (15-37) H Alanine Aminotransferase (ALT) 76 U/L (14-59) H Alkaline Phosphatase 97 U/L (46-116) Creatine Kinase 357 U/L (26-192) H Troponin I Quantitative < 0.017 ng/mL (0.000-0.055) NL-Mdq-P-Type Natriuretic Peptide 26 pg/mL (0-124) Total Protein 8.8 g/dL (6.4-8.2) H Albumin 4.0 g/dL (3.4-5.0) Albumin/Globulin Ratio 0.8 (1.0-1.7) L Lactic Acid Level 1.1 mmol/L (0.4-2.0) Laboratory Tests 07/12/19 08:09 Laboratory Tests 07/12/19 08:09 EKG EKG EKG interpreted by me. EKG at 0 728 showed sinus tachycardia at rate of 109, left atrial abnormality, left burrows axis, no acute ST and T-wave elevation Radiology/Procedures Radiology/Procedures [][facility] [address] [place] [address] IMAGING REPORT Signed PATIENT: JANETTE BASILIO ACCOUNT: [id number] : 1965 LOCATION: ER AGE: 54 SEX: F EXAM STATUS: REG ER ORD. PHYSICIAN: MOUNA MELISSA MD REASON: headache and nausea PROCEDURE: PORTABLE CHEST 1V Examination: PORTABLE CHEST 1V History: Headache and nausea Comparison/Correlation: 01/12/2018 Portable Chest X-ray Exam Findings: Portable upright frontal view of chest was obtained. Heart size and pulmonary vascular normal. No infiltrate or suspected pleural effusion. No pneumothorax. Dextroconvexity of the low thoracic spine noted. Impression: No active disease. Electronically signed by: Jatinder Grijalva MD (07/12/2019 7:42 AM) [facility] [address] [place] [address] IMAGING REPORT Signed PATIENT: JANETTE BASILIO ACCOUNT: [id number] : 1965 LOCATION: ER AGE: 54 SEX: F EXAM STATUS: REG ER ORD. PHYSICIAN: MOUNA MELISSA MD REASON: headache and nausea PROCEDURE: CT HEAD WO CONTRAST Examination: CT HEAD WO CONTRAST History: Headache and nausea Comparison/Correlation: 01/12/2018 CT head without contrast Findings: Axial images of the head were obtained without contrast. Ventricles are normal size. No intracranial hemorrhage, midline shift, or mass effect. Orbits are unremarkable. Opacification of the left maxillary sinus is unremarkable. Small defect involving the right maxillary sinus medial wall noted. Correlate with surgical history. Impression: No intracranial hemorrhage. Chronic left maxillary sinusitis. PQRS Compliance Statement: One or more of the following individualized dose reduction techniques were utilized for this examination: 1. Automated exposure control 2. Adjustment of the mA and/or kV according to patient size 3. Use of iterative reconstruction technique Electronically signed by: Jatinder Grijalva MD (07/12/2019 8:04 AM) [facility] DICTATED and SIGNED BY: JATINDER GRIJALVA MD DATE: 07/12/19 0804 Course & Med Decision Making Course & Med Decision Making Pertinent Labs and Imaging studies reviewed. (See chart for details) Evaluation of patient in ER showed 53-year-old male patient with history of head ache presented to ER with complaining of headache and nausea. Patient treated with fentanyl, Toradol with partial improvement of her headache. Patient had intranasal lidocaine with resulting to headache. Patient did not have leukocytosis and elevation of lactic acid. Patient had magnesium of 1.4 and treated with IV magnesium and potassium of 3.1 and treated with oral potassium. Patient had elevation of blood pressure at 180s over 100 at arrival to ER that gradually improved with treatment of headache. CT head and chest x-ray and troponin was unremarkable. Patient had mild elevation of liver enzymes and CPK and was advised to follow-up with her primary care physician for further evaluation. I've spoken with the patient and/or caregivers. I've explained the patient's condition, diagnosis and treatment plan based on information available to me at this time. I've answered the patient's and/or caregivers questions and addressed any concerns. The patient and/or caregivers have a good understanding the patient's diagnosis, condition and treatment plan as can be expected at this point. Vital signs have been stabilized. The patient's condition is stable for discharge from the emergency department. The patient will pursue further outpatient evaluation with her primary care provider or other designated consulting physician as outlined in the discharge instructions. Patient and/or caregivers are agreeable to this plan of care and follow-up instructions have been explained in detail. The patient and/or caregivers have received these instructions in written format and expressed understanding of these discharge instructions. The patient and her caregivers are aware that if any significant change in condition or worsening of symptoms should prompt him to immediately return to this of the closest emergency department. If an emergent department is not readily available I would encourage him to call 911. Cliff Disclaimer Dragon Disclaimer This electronic medical record was generated, in whole or in part, using a voice recognition dictation system. Departure Departure Impression: Primary Impression: Sinus headache Additional Impressions: Hypomagnesemia Hypokalemia Elevated liver function tests Elevated CPK Sinusitis Hypertension, accelerated Disposition: 01 HOME, SELF-CARE (at 1035) Condition: IMPROVED Referrals: EULOGIO COLEMAN (PCP) Patient Instructions: Headache, FAQs, Hypokalemia, Hypomagnesemia, Sinusitis Additional Instructions: Drink plenty of liquids Follow-up with your primary care physician in 3-5 days Return to ER if not getting better Continue home blood pressure medication Thank you for visiting [facility]. We appreciate you trusting us with your care. If any additional problems come up don't hesitate to return to visit us. Please follow up with your primary care provider so they can plan additional care if needed and know about the problem that you had. If symptoms worsen come back to the Emergency Department. Any concerning symptoms that start such as chest pain, shortness of air, weakness or numbness on one side of the body, running high fevers or any other concerning symptoms return to the ER. Scripts Magnesium Oxide (MAGNESIUM OXIDE) 400 Mg Tablet 1 TAB PO BID, #14 TAB 0 Refills Prov: MOUNA MELISSA MD 07/12/19 Ondansetron Hcl (ZOFRAN) 4 Mg Tablet 1 TAB PO PRN Q6-8HRS for nausea, #12 TAB Prov: MOUNA MELISSA MD 07/12/19 Tramadol Hcl (ULTRAM) 50 Mg Tablet 50 MG PO Q6HRS PRN for PAIN, #14 TAB 0 Refills Prov: MOUNA MELISSA MD 07/12/19 Amoxicillin (AMOXICILLIN) 500 Mg Capsule 1 CAP PO Q8HRS for infection, #30 CAP Prov: MOUNA MELISSA MD 07/12/19 Problem Qualifiers Additional Impressions: Sinusitis Sinusitis location: maxillary Chronicity: unspecified Qualified Codes: J32.0 - Chronic maxillary sinusitis MOUNA MELISSA MD Jul 12, 2019 07:35
--- NOTE | 2019-07-12 07:45 | RAD ---
Examination: PORTABLE CHEST 1V History: Headache and nausea Comparison/Correlation: 01/12/2018 Portable Chest X-ray Exam Findings: Portable upright frontal view of chest was obtained. Heart size and pulmonary vascular normal. No infiltrate or suspected pleural effusion. No pneumothorax. Dextroconvexity of the low thoracic spine noted. Impression: No active disease. Electronically signed by: Jatinder Jarrell MD (07/12/2019 7:42 AM) [facility]
--- NOTE | 2019-07-12 08:07 | RAD ---
Examination: CT HEAD WO CONTRAST History: Headache and nausea Comparison/Correlation: 01/12/2018 CT head without contrast Findings: Axial images of the head were obtained without contrast. Ventricles are normal size. No intracranial hemorrhage, midline shift, or mass effect. Orbits are unremarkable. Opacification of the left maxillary sinus is unremarkable. Small defect involving the right maxillary sinus medial wall noted. Correlate with surgical history. Impression: No intracranial hemorrhage. Chronic left maxillary sinusitis. PQRS Compliance Statement: One or more of the following individualized dose reduction techniques were utilized for this examination: 1. Automated exposure control 2. Adjustment of the mA and/or kV according to patient size 3. Use of iterative reconstruction technique Electronically signed by: Jatinder Jarrell MD (07/12/2019 8:04 AM) [facility]
[2019-07-12 08:19] LABS: BASO % 1 % (0-3); EOS % 1 % (0-3); HEMATOCRIT 49.2 % (36.0-47.0); HEMOGLOBIN 16.8 g/dL (12.0-15.5); LYMPH # 2.1 x10^3/uL (1.0-4.8); LYMPH % 43 % (24-48); MEAN CORPUSCULAR HEMOGLOBIN 31 pg (25-35); MEAN CORPUSCULAR HGB CONC 34 g/dL (31-37); MEAN CORPUSCULAR VOLUME 90 fL (79-100); MONO # 0.4 x10^3/uL (0.0-1.1); MONO % 9 % (0-9); NEUT # 2.2 x10^3/uL (1.8-7.7); NEUT % 46 % (31-73); PLATELET COUNT 331 x10^3/uL (140-400); RED BLOOD COUNT 5.49 x10^6/uL (3.50-5.40); RED CELL DISTRIBUTION WIDTH 15.3 % (11.5-14.5); WHITE BLOOD COUNT 4.9 x10^3/uL (4.0-11.0)
[2019-07-12 08:29] LABS: CALCIUM 9.7 mg/dL (8.5-10.1); CREATININE 0.9 mg/dL (0.6-1.0); GFR 79.3; POTASSIUM 3.1 mmol/L (3.5-5.1)
[2019-07-12] MEDS ORDERED: KETOROLAC 30 MG/ML VIAL. IVP ONE (08:30)
[2019-07-12 08:36] LABS: ALBUMIN/GLOBULIN RATIO 0.8 (1.0-1.7); MAGNESIUM 1.4 mg/dL (1.8-2.4); TOTAL BILIRUBIN 0.4 mg/dL (0.2-1.0); TOTAL PROTEIN 8.8 g/dL (6.4-8.2)
[2019-07-12 08:48] LABS: PROTHROMBIN TIME PATIENT 11.3 SEC (11.7-14.0)
[2019-07-12] MEDS ORDERED: POTASSIUM CHLORIDE 20 MEQ TABLET.ER. PO ONE (09:00)
[2019-07-12] MEDS ORDERED: MAGNESIUM SULFATE 2GM 50 ML IV ONE (09:00)
[2019-07-12] MEDS ORDERED: IV NORMAL SALINE 1000ML BAG 1,000 ML IV ONE (09:30)
[2019-07-12] MEDS ORDERED: METOCLOPRAMIDE HCL 10 MG/2 ML VIAL. IVP ONE (09:30)
[2019-07-12 09:51] VITALS: BP 163/85
[2019-07-12] MEDS ORDERED: TRAM-48 PO (10:37)
[2019-07-12] MEDS ORDERED: ONDA4TAB7 PO (10:37)
[2019-07-12] MEDS ORDERED: AMOX500C PO (10:37)
[2019-07-12] MEDS ORDERED: MAGN400T5 PO (10:39)
== END 2019-07-12 10:49 | disposition home or self-care (01) ==
LOC: ER 06:59
DX: J32.0 Chronic maxillary sinusitis (principal); R51 Headache; E83.42 Hypomagnesemia; E87.6 Hypokalemia; R94.5 Abnormal results of liver function studies; R74.8 Abnormal levels of other serum enzymes; I10 Essential (primary) hypertension; G45.9 Transient cerebral ischemic attack, unspecified; K50.90 Crohn's disease, unspecified, without complications; Z90.49 Acquired absence of other specified parts of digestive tract; Z90.710 Acquired absence of both cervix and uterus; Z98.890 Other specified postprocedural states; Z88.6 Allergy status to analgesic agent; Z88.8 Allergy status to other drugs, medicaments and biological substances
CPT/HCPCS: 36415; 70450; 71045; 80053; 82550; 83605; 83735; 83880; 84484; 85025; 85610; 93005; 96365; 96375; 99285; J1885; J2405; J2765; J3010; J3475; J7030

== ENCOUNTER → 2020-02-01 | Outpatient (CLI) | payer OTHER ==
[~2020-02-01] MED LIST changes: +AMOX500C PO; +ERYT250C33 PO; -ERYT250C8 PO; +MAGN400T5 PO; +ONDA4TAB7 PO; +TRAM-48 PO
--- NOTE | 2020-02-01 11:27 | RAD ---
Examination: 1. Bilateral digital diagnostic mammogram. 2. Limited right breast ultrasound. INDICATION: 54-year-old woman due for bilateral mammographic screening comes for short-term follow-up of a probably benign right breast finding COMPARISON: Bilateral mammogram of 12/08/2018, 11/18/2016. TECHNIQUE: CC and MLO views of both breasts were obtained with 2-D and 3-D technique and reviewed with computer-aided detection. Thereafter, targeted ultrasound of the right breast was performed. FINDINGS: The breasts are almost entirely fatty replaced. The left mammogram shows fine linear calcifications in the central left breast spanning a 12 mm length that have developed from previous mammograms and are mildly suspicious. Biopsy should be considered. Right mammogram shows an oval 12 mm mass in the lateral middle third right breast that shows an increase in density and decrease in coarse calcifications compared with 2017. It has mildly irregular margins and was imaged further by targeted right breast ultrasound. Targeted right breast ultrasound identified at the 9:00 position 14 cm from the nipple an oval microlobulated 9 mm mass that correlates with the mammographic finding. It is suspicious and biopsy is recommended. IMPRESSION: 1. Suspicious 9 mm mass in the lateral right breast at the 9:00 position 14 cm from the nipple. Ultrasound-guided core needle biopsy is recommended. 2. Suspicious cluster of calcifications in the central left breast. Stereotactic biopsy is recommended. Discussed with the patient on the day of her visit. Recommendation for bilateral breast biopsy telephoned to Dr. Benitez Redding's office at 10:52 AM 02/01/2020 where [facility]'s nutrition services assistant took the message on Dr. Redding's behalf.
== END | disposition home or self-care (01) ==
LOC: MAMMO 09:20
PROVIDERS: ATTEND Family Medicine
DX: R92.1 Mammographic calcification found on diagnostic imaging of breast (principal); N63.12 Unspecified lump in the right breast, upper inner quadrant
CPT/HCPCS: 76641; 77066

== ENCOUNTER → 2020-02-14 | Outpatient (CLI) | payer OTHER ==
[~2020-02-14] MED LIST changes: +LIDOCAINE 1%/EPI 1:100,000 20 ML VIAL. INJ ONE
--- NOTE | 2020-02-15 08:50 | RAD ---
Examination: 1. Ultrasound-guided right breast core needle biopsy. 2. Digital postprocedure mammogram. 3. Right breast stereotactic core needle biopsy. INDICATION: 54-year-old woman initially due for mammographic screening presented for short-term follow-up of a previously assessed probably benign right breast mass. She was subsequently recommended for biopsy of the right breast mass and of left breast calcifications. COMPARISON: Bilateral diagnostic mammogram 02/01/2020, right breast ultrasound of 02/01/2020. Bilateral diagnostic mammogram of 01/06/2019, Left diagnostic mammogram of 05/22/2018. TECHNIQUE AND FINDINGS: For the right breast, informed consent was obtained and an appropriate procedural pause observed. Using standard sterile technique, ultrasound guidance and local anesthesia, multiple 14-gauge core biopsy samples of the 9 mm mass in the lateral posterior right breast annotated at the 9:00 position 14 cm from the nipple were obtained. Samples were placed in formalin, an S-shaped biopsy marker deployed in the lesion under ultrasound guidance and hemostasis ensured with direct right breast compression for 10 minutes. For the left breast, informed consent was obtained and an appropriate procedural pause observed. Using standard sterile technique, superficial local anesthetic with lidocaine and deeper breast tissue anesthesia with lidocaine with epinephrine, stereotactic imaging guided biopsy with a 9 gauge vacuum-assisted needle was performed of the calcifications in the central, slightly lower outer left breast. Specimen radiograph obtained during the procedure demonstrated satisfactory sampling of the targeted calcifications. A xochilt-shaped biopsy marker was deployed at the biopsy site, needle removed and hemostasis ensured with direct breast compression for 10 minutes. Post procedure mammogram showed satisfactory deployment of the S-shaped biopsy marker within the mass in the right breast under ultrasound guidance, and a xochilt-shaped biopsy marker in the left breast with minimal residual calcifications at the biopsy target site. Puncture site was dressed. Post procedure instructions were reviewed and the patient discharged in stable condition to follow up with her referring physician. No apparent complications. No postbiopsy hematoma. IMPRESSION: Successful bilateral imaging guided breast biopsies, using ultrasound guidance for the right breast 9 mm mass in the lateral posterior breast, and stereotactic imaging guidance for the cluster of calcifications in the central, slightly lower outer left breast, with appropriate to biopsy marker deployment documented on postprocedure mammogram. Pathology results are pending. An addendum will be issued once pathology results become available. Electronically signed by: Poly Laura MD (02/15/2020 8:47 AM) [id number]
--- NOTE | 2020-02-16 15:08 | PATHOLOGY ---
[facility] Accession Number: [id number] . 01 Material submitted: . PART A: breast - RIGHT BREAST TISSUE, 9:00, 14CMFN. Modifiers: right, 9:00 PART B: breast - LEFT BREAST TISSUE CALCIFICATIONS. Modifiers: left . 01 Clinical history: . A. Right breast mass B. Left breast calcifications . 02 Diagnosis: A. 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 SEE COMMENT. . B. Breast tissue, left breast needle biopsies: - Focal small nodular foci of fibroadenomatous change with associated calcifications. . (JPM:mml; 02/15/2020) [facility] 02/16/2020 08 Local . 02 Comment: Sections of the right breast mass at 9:00 needle biopsy reveal a special type of mammary carcinoma. The tumor cells are dispersed within pools of extracellular mucin. The tumor cells are present in clusters, but also show a trabecular and focal glandular configuration. The tumor cells are relatively small and uniform and show no significant nuclear atypia or mitotic activity. There is no lymphovascular tumor invasion. There are no tumor-associated calcifications. 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 The tumor measures up to 1.0 cm in greatest dimension on the glass slide. . Breast prognostic studies will be obtained on A2, the results of which will be reported separately. The case is also examined by Dr. Loc Grace, who concurs with the diagnosis. . Sections of the left breast needle biopsy predominantly reveal fatty breast tissue. There are scattered minute nodular foci of ancient fibroadenomatous change with associated calcifications. There is no evidence of malignancy. . (JPM:mml; 02/15/2020) . 02 Electronically signed: . Hemant Vizcaino MD, Pathologist NPI- [id number] . 01 Gross description: . A. The specimen is received in formalin, labeled "Gladys Martinez, right breast 9:00 14 cm FN" and consists of of 4 needle cores of pink breast tissue measuring between 1.0 cm and 1.4 cm in length and 0.2 cm each in diameter which are entirely submitted in A1-A3. The specimen was obtained at 12:53 PM on 02/14/2020 and placed in formalin at 12:56 PM. The cold ischemic time is 3 minutes and the total formalin fixation time is greater than 6 hours less than 72 hours. . B. The specimen is received in formalin, labeled "Gladys Martinez, B" and "left breast tissue calcifications" per requisition. Received is an orange cassette containing multiple segments of yellow tissue measuring 3.3 x 2.8 x 0.6 cm in aggregate which are entirely submitted in B1-B2. The specimen was obtained at 2:25 PM on 02/14/2020 and placed in formalin at 2:45 PM. The cold ischemic time is 2 minutes and the total formalin fixation time is greater than 6 hours but less than 72 hours. (SDY; 02/14/2020) SYU/SYU 02/14/2020 1713 Local . 02 Pathologist provided ICD-10: C50.911, N60.22 . 02 CPT . 313192, [id number] Specimen Comment: A courtesy copy of this report has been sent to [phone], [phone] Specimen Comment: [id number] Specimen Comment: Report sent to / DR COLEMAN Performed at: 01 [facility] [address], [place] [id number] MD Rodolfo Yousif MD Phone: [phone] Performed at: [facility] [address] [place], [place] [id number] MD Hemant Vizcaino MD Phone: [phone]
== END | disposition home or self-care (01) ==
LOC: US 12:28
PROVIDERS: ATTEND Family Medicine
DX: R92.8 Other abnormal and inconclusive findings on diagnostic imaging of breast (principal); I10 Essential (primary) hypertension; Z88.8 Allergy status to other drugs, medicaments and biological substances; Z79.899 Other long term (current) drug therapy; Z80.3 Family history of malignant neoplasm of breast; Z82.49 Family history of ischemic heart disease and other diseases of the circulatory system
CPT/HCPCS: 19081; 19083; 77066; C1713; 19085; 76942; 77022